=== PATIENT | female | born 1970 | race Caucasian/White ===

== ENCOUNTER → 2025-03-08 08:27 | Outpatient (CLI) | payer OTHER, SELFPAY | PROVIDERS: PCP Physician Assistant Medical; Visit Provider Physician Assistant Medical | DX: N76.5 Ulceration of vagina (principal) | CPT/HCPCS: 87070; 87205; 87252; 87491; 87529; 87591; 87661; 87798; 87801 ==

== ENCOUNTER → 2025-03-14 13:33 | Outpatient (CLI) | payer OTHER, SELFPAY ==
[2025-03-15 16:08] LABS: Hepatitis B Surface Antigen NEGATIVE s/c (NEGATIVE)
[2025-03-15 16:24] LABS: HIV 1 & 2 Ab/Ag 4th Gen Combo NEGATIVE (NEGATIVE); Hep C Virus Ab w/Reflex Quant NEGATIVE s/c (NEGATIVE)
[2025-03-16 22:36] LABS: HSV 1 DNA Negative (Negative); HSV 2 DNA Negative (Negative)
== END ==
PROVIDERS: PCP Physician Assistant Medical; Visit Provider Physician Assistant Medical
DX: N76.5 Ulceration of vagina (principal)
CPT/HCPCS: 86592; 86803; 87340; 87389; 87529

== ENCOUNTER → 2025-04-18 10:19 | Outpatient (CLI) | payer OTHER, SELFPAY ==
[2025-04-18 18:49] LABS: Add Manual Diff / Slide Review NO; Hematocrit 41.6 % (36-46); Hemoglobin 13.9 g/dL (12.0-16.0); Lymphocytes Absolute Auto 1700 /uL (1100-4500); Mean Corpuscular HGB Conc 33.4 % (30-36); Mean Corpuscular Hemoglobin 29.9 PG (26-34); Mean Corpuscular Volume 89.4 fL (80-100); Platelet Count 192 X10^3/uL (150-400)
[2025-04-18 19:17] LABS: Alanine Aminotransferase 15 IU/L (<35); Albumin 5.0 g/dL (3.5-5.0); Albumin Globulin Ratio 1.7 (1.0-2.8); Alkaline Phosphatase 66 U/L (38-126); Blood Urea Nitrogen 14 mg/dL (7-17); Calcium 10.0 mg/dL (8.4-10.2); Carbon Dioxide 30 mmol/L (22-32); Chloride 101 mmol/L (98-107); Cholesterol 259 mg/dL (140-199); Estimated Glomerular Filt Rate > 60 mL/min (>60); Globulin 2.9 g/dL (1.7-4.1); Glucose 100 mg/dL (70-99); Potassium 4.5 mmol/L (3.4-5.1); Sodium 137 mmol/L (137-145); Total Protein 7.9 g/dL (6.3-8.2); Triglycerides 63 mg/dL (35-150)
[2025-04-18 19:24] LABS: HEMOLYSIS 15 (0-50)
[2025-04-18 19:25] LABS: HDL Cholesterol 143 mg/dL (40-60)
[2025-04-18 19:47] LABS: TSH w/ Reflex to FT4 0.49 uIU/mL (0.47-4.68)
== END ==
PROVIDERS: PCP Physician Assistant Medical; Visit Provider Physician Assistant Medical
DX: Z11.2 Encounter for screening for other bacterial diseases (principal); N76.5 Ulceration of vagina; Z13.6 Encounter for screening for cardiovascular disorders
CPT/HCPCS: 80053; 80061; 84443; 85025